=== PATIENT | female | born 1945 | race African-American/Black ===

== ENCOUNTER 2018-10-25 01:12 | Emergency (ER) | payer MEDICARE, MEDICAID ==
[~2018-10-25] VITALS: Ht 167.6 cm; Wt 82.0 kg
[2018-10-25] MEDS ORDERED: HYDROCODONE/ACETAMINOPHEN 5/325MG TABLET PO ONE ×2 (02:45→13:30)
[2018-10-25] MEDS ORDERED: IBUPROFEN 600MG TABLET PO ONE (08:00)
[2018-10-25 17:50] VITALS: BP 122/68
== END 2018-10-25 18:47 | disposition home or self-care (01) ==
LOC: ER 01:12
DX: G89.29 Other chronic pain (principal); M79.605 Pain in left leg; Z59.0 Homelessness; Z86.73 Personal history of transient ischemic attack (TIA), and cerebral infarction without residual deficits
CPT/HCPCS: 99284